=== PATIENT | male | born 1970 | race Caucasian/White ===

== ENCOUNTER 2019-11-18 14:47 | Emergency (ER) | payer MEDICAID ==
[~2019-11-18] VITALS: Ht 170.2 cm; Wt 82.0 kg
[2019-11-18] MEDS ORDERED: PREDNISONE 20MG TABLET PO STA (18:01)
[2019-11-18] MEDS ORDERED: IPRATROPIUM BROMIDE (0.02%) 0.5MG/2.5ML NEB HHN STA (18:01)
[2019-11-18] MEDS ORDERED: ALBUTEROL (0.083%) 2.5MG/3ML NEB HHN STA (18:01)
[2019-11-18 20:06] VITALS: BP 145/82
== END 2019-11-18 20:11 | disposition home or self-care (01) ==
LOC: ER 14:47
DX: J40 Bronchitis, not specified as acute or chronic (principal); I10 Essential (primary) hypertension
CPT/HCPCS: 71045; 94640; 99284; J7512; J7611; Z7610